=== PATIENT | female | born 1975 ===

== ENCOUNTER 2017-09-17 05:53 | Day surgery (SDC) | payer BC ==
[2017-08-20 13:22] VITALS: BMI 39.1
[2017-09-17] MEDS ORDERED: Midazolam 2 MG/2 ML VIAL ONE (07:09)
[2017-09-17] MEDS ORDERED: Propofol 10 mg/ml Inj (20 ML) ONE (07:09)
[2017-09-17] MEDS ORDERED: ceFAZolin 1 gm in NS 0 GM/0 ML BAG IVPB ONE (07:55)
[2017-09-17] MEDS ORDERED: Lidocaine/Epinephrine 1% 1:100000 10 ML IJ ONE (07:56)
[2017-09-17] MEDS ORDERED: Bupivacaine 0.25% 20 ML INJ IJ ONE (07:56)
[2017-09-17] MEDS ORDERED: ceFAZolin IV 2 gm in Dextrose 0 GM/0 ML BAG IVPB ONE (07:56)
[2017-09-17] MEDS ORDERED: Sodium Chloride 0.9% 20 ML IV ONE (08:15)
[2017-09-17] MEDS ORDERED: Bupivacaine-Epi 0.5%-1:200,000 PF Inj IJ ONE (08:15)
[2017-09-17] MEDS ORDERED: cefOXitin IV 2 gm in Dextrose 2 GM/50 ML BAG IVPB ONE (09:11)
[2017-09-17] MEDS ORDERED: Rocuronium 10 mg/ml (5 ml) ONE (09:31)
--- NOTE | 2017-09-17 10:07 | PCM.SURG1 ---
Surgeon's Initial Post Op Note - Surgeon's Notes Surgeon: Sonali Rodas MD Hot Mix Operator: Denny Butterfield MD Type of Anesthesia: General Endo Pre-Operative Diagnosis: Multiparity desires permanent tubal sterilzation Operative Findings: 10 week size uteurs, normal appearing uterus, tubes adn ovariesn bilaterally. Dr Butterfield was surgical assistnat and preesnt for entire case and essential in gaining robotic entry, and holding hulka uterine maniupuator Post-Operative Diagnosis: same as above Operation Performed: Robotic bilateral salpingecotmy Specimen/Specimens Removed: right and left fallopian tubes Estimated Blood Loss: EBL {In ML}: 5 Blood Products Given: N/A Drains Used: No Drains Post-Op Condition: Good Date of Surgery/Procedure: 09/17/17 Time of Surgery/Procedure: 09:00
[2017-09-17] MEDS ORDERED: HYDROmorphone 0.5 mg/0.5 ml ISec IVP PRN (10:10)
[2017-09-17 11:30] VITALS: O2SAT 99
[2017-09-17 11:43] VITALS: PULSE 79
[2017-09-17 12:21] VITALS: BP 140/81; RESP 20; TEMP 97.8
--- NOTE | 2017-09-17 22:25 | OP ---
PROCEDURE DATE: 09/17/2017 SURGEON: Sonali Rodas MD FREELANCE INTERPRETER/TRANSLATOR: ANESTHESIA: General endotracheal. PREOPERATIVE DIAGNOSES: Multiparous, desires permanent tubal sterilization, multiple emergency contraceptions used in the past, desiring definitive surgical management. POSTOPERATIVE DIAGNOSES: Multiparous, desires permanent tubal sterilization, multiple emergency contraceptions used in the past, desiring definitive surgical management. was the surgical garment inspector present for the entire case and assisted in gaining entry robotically, laparoscopically, confirming placement and holding uterine manipulation through the Hulka. OPERATION PERFORMED: Robotic bilateral salpingectomy. OPERATIVE FINDINGS: 10-week sized uterus, normal-appearing uterus, tubes, and ovaries bilaterally. SPECIMENS REMOVED: Right and left fallopian tubes. BLOOD PRODUCTS: None. COMPLICATIONS: None. ESTIMATED BLOOD LOSS: 5 mL. DESCRIPTION OF PROCEDURE: The patient is a 41-year-old para 1 who has completed childbearing who has attempted medical forms of hormone replacement that were unsuccessful and also used emergency contraception a few times. Due to completion of childbearing, the patient opted for definitive surgical management of robotic bilateral salpingectomy given the additional benefit. Consent was obtained. The patient was taken to the operating room where she was identified. She was placed in the dorsal lithotomy position with general anesthesia administered without difficulty. She was prepped and draped in the usual sterile fashion with the legs supported using stirrups. Bilateral compression stockings were placed and activated. A South catheter was then inserted into the urethra to drain the bladder. A Wheeler retractor was placed in the anterior and posterior fornix of the vagina. Cervix was adequately visualized. A single-tooth tenaculum was placed on the anterior lip of the cervix. The uterus was then sounded to 7 cm. Following this, the Hulka clip was then inserted and applied to the cervix, and the single tooth tenaculum was removed, and there was good hemostasis noted. The legs were then readjusted. The surgeon re-gloved, and attention was then turned to the abdomen. An infraumbilical skin incision was made after 0.25 Marcaine made at the infraumbilical region and in addition in the right and left upper quadrants and suprapubic and assistant manager trainee ports were placed. After Marcaine, the anesthesia was inserted, two clamps were placed at the umbilical area. The skin was then tented up and the Veress needle was inserted. Confirmation was placed with normal saline, and the gas was then insufflated with a normal opening pressure. The abdomen was then insufflated to 50 mmHg with a normal flow. Following this, an infraumbilical skin incision of 8 mm was then inserted, and the laparoscope was then inserted under direct visualization using the Optiview. Confirmation was replaced, the Veress needle was then reinserted, and the gas was then reconnected. Two additional ports were then placed; the 8 mm under direct visualization, and in addition, the suprapubic port. Good confirmation of placement was placed. The patient was then placed in Trendelenburg position, and there were normal-appearing tubes and ovaries. A bipolar device was then used to help for retraction, and the monopolar device cautery was used to dissect the fallopian tube from the ovary in an avascular plane of the medial salpinx, which was cauterized, ligated, and removed at the cornua of the tube. The fallopian tube was then removed through the assistant manager trainee port. Attention was then turned to the alternative tube which in a similar fashion was grasped at the distal end from the fimbriated and with a bipolar device and cauterized with the monopolar device along the avascular mesosalpinx up to the level of the cornua using the bipolar device. There was good hemostasis noted. All specimens were removed. There was good hemostasis noted. All instruments were removed. All laparoscopic ports were removed under direct visualization. The abdomen was then desufflated. The skin was then reapproximated, closed with 3-0 Monocryl in a running subcuticular fashion. Following this, the South catheter was then removed, and the Hulka uterine manipulator was removed with good hemostasis noted. At the end of the procedure, all needle, sponge, and instrument counts were noted as correct x2. The patient tolerated the procedure well and was transferred to the recovery room in stable condition. Sonali Rodas MD
== END 2017-09-17 12:15 | disposition home or self-care (01) ==
LOC: C.SDS 05:53
PROVIDERS: ATTEND Obstetrics & Gynecology
DX: Z30.2 Encounter for sterilization (principal)
CPT/HCPCS: 58661; 88302; J0694; J1885; J2001; J2250; J2405; J2704; J3010